=== PATIENT | female | born 1950 | race Caucasian/White ===

== ENCOUNTER → 2017-02-04 | Outpatient (REF) | payer MEDICARE ==
[~2017-02-04] MED LIST: CURCPOW; FLUT11IN INH; LISI-542 PO; PROA1AER IN; [UNRECOGNIZED DRUG - CODE] PO
[2017-02-04 12:46] LABS: ANION GAP 8 MEQ/L (8-16); BLOOD UREA NITROGEN 21 MG/DL (7-18); CALCIUM LEVEL 9.2 MG/DL (8.8-10.2); CARBON DIOXIDE LEVEL 28 MEQ/L (21-32); CHLORIDE LEVEL 106 MEQ/L (98-107); CHOLESTEROL LEVEL 191 MG/DL (<200); CREATININE FOR GFR 0.94 MG/DL (0.55-1.02); GLOMERULAR FILTRATION RATE > 60.0 (>45); GLUCOSE, FASTING 86 MG/DL (80-110); MAGNESIUM LEVEL 1.9 MG/DL (1.8-2.4); POTASSIUM SERUM 4.3 MEQ/L (3.5-5.1); SODIUM LEVEL 142 MEQ/L (136-145); TRIGLYCERIDES LEVEL 47 MG/DL (<150)
== END ==
LOC: M LABDRAWC 12:01
PROVIDERS: ATTEND Internal Medicine
DX: E78.5 Hyperlipidemia, unspecified (principal); I10 Essential (primary) hypertension; E83.42 Hypomagnesemia

== ENCOUNTER → 2017-07-01 | Outpatient (CLI) | payer MEDICARE ==
[~2017-07-01] MED LIST changes: -PROA1AER IN; +PROAAER10 IN
--- NOTE | 2017-07-01 12:10 | REP ---
CT of the chest without IV contrast: Comparison is made multiple prior studies. There is a 5 mm lung nodule posterior medially in the right upper lobe on image 16. This measured 5 mm of 01/18/2015 and 5 mm on 11/30/2015. There is a 3 mm lung nodule in the right middle lobe anteriorly on image 54. This is unchanged from 03/16/2014. There is a new right upper lobe lung nodule on image 17 measuring 6 mm, not present on the most recent prior study of 07/04/2016. There are no other lung nodules or masses. There is a small stable parenchymal scar in the medial segment right middle lobe, unchanged in 11/30/2015. There are numerous bulla throughout the lung weathers bilaterally, unchanged, compatible with bullous emphysema. There are no pleural effusions. There are no mediastinal enlarging lymph nodes. No axillary, enlarged lymph nodes. The absence of IV contrast the study is insensitive for hilar lymph node enlargement. There are bilateral breast implants, unchanged. The unenhanced thoracic aorta is unremarkable. Cardiac size is normal. The visualized upper abdominal contents are unremarkable and unchanged. Impression: Lung nodules as described. Bullous emphysema. Parenchymal scar in the medial segment right middle lobe. Signed by Billy Donovan MD 07/01/2017 12:01 P
== END ==
LOC: M RAD 10:54
PROVIDERS: ATTEND Internal Medicine Pulmonary Disease
DX: R91.8 Other nonspecific abnormal finding of lung field (principal)

== ENCOUNTER → 2018-05-12 | Outpatient (CLI) | payer MEDICARE | LOC: M RAD 09:18 | DX: R91.8 Other nonspecific abnormal finding of lung field (principal); J43.8 Other emphysema; Z90.13 Acquired absence of bilateral breasts and nipples | CPT/HCPCS: 71250 ==

== ENCOUNTER → 2018-05-21 | Outpatient (CLI) | payer MEDICARE | LOC: M WHC 10:01 | DX: Z13.820 Encounter for screening for osteoporosis (principal); M85.9 Disorder of bone density and structure, unspecified; M81.0 Age-related osteoporosis without current pathological fracture | CPT/HCPCS: 77080 ==

== ENCOUNTER → 2018-06-11 | Outpatient (REF) | payer MEDICARE ==
[2018-06-11 15:04] LABS: RHEUMATOID FACTOR QUANT 10.9 IU/ML (<15.0)
[2018-06-17 14:09] LABS: ANCA-ATYPICAL <1:20 titer (Neg:<1:20); ASPERGILLUS FLAVUS ABY Negative (Neg:<1:1); ASPERGILLUS FUMIGATUS ABY Negative (Neg:<1:1); ASPERGILLUS NIGER ABY Negative (Neg:<1:1); BLASTOMYCES ABY Negative (Neg:<1:1); CYCLIC CITRULLINATED PEPTIDE 6 units (0-19); CYTOPLASMIC NEUTROP AB ANCA-C <1:20 titer (Neg:<1:20); HISTOPLASMA ABY Negative (Neg:<1:1); PERINUCLEAR AB ANCA-P <1:20 titer (Neg:<1:20)
== END ==
LOC: M LAB REF 12:53
DX: J44.9 Chronic obstructive pulmonary disease, unspecified (principal)
CPT/HCPCS: 86606

== ENCOUNTER → 2018-08-07 | Outpatient (REF) | payer MEDICARE ==
[2018-08-07 12:25] LABS: APPEARANCE, URINE CLEAR (CLEAR); BACTERIA, URINE AUTO NEGATIVE (NEGATIVE); BILIRUBIN, URINE AUTO NEGATIVE (NEGATIVE); BLOOD, URINE BLOOD 1+ (NEGATIVE); COLOR, URINE YELLOW (YELLOW); GLUCOSE, URINE (UA) AUTO NEGATIVE (NEGATIVE); KETONE, URINE AUTO NEGATIVE (NEGATIVE); LEUKOCYTE ESTERASE, URINE AUTO NEGATIVE (NEGATIVE); MUCUS, URINE SMALL (NEGATIVE); NITRITE, URINE AUTO NEGATIVE (NEGATIVE); PROTEIN, URINE AUTO NEGATIVE (NEGATIVE); RBC, URINE AUTO 0 /HPF (0-3); SPECIFIC GRAVITY URINE AUTO 1.016 (1.002-1.035); SQUAMOUS EPITHELIAL CELL UR AU 0 /HPF (0-6); UROBILINOGEN, URINE AUTO 0.2 mg/dL (0.0-2.0); WBC, URINE AUTO 1 /HPF (0-3)
[2018-08-07 12:28] LABS: BASO # 0.1 10^3/uL (0.0-0.2); BASO % 0.9 % (0.0-1.0); EOS # 0.7 10^3/uL (0.0-0.50); HEMATOCRIT 42.5 % (36.0-47.0); HEMOGLOBIN 13.9 g/dl (12.0-15.5); IMMATURE GRANULOCYTE % 0.2 % (0-3.0); LYMPH # 2.7 10^3/uL (1.5-4.5); LYMPH % 49.5 % (24.0-44.0); MEAN CORPUSCULAR HEMOGLOBIN 30.8 pg (27.0-33.0); MEAN CORPUSCULAR HGB CONC 32.7 g/dl (32.0-36.5); MONO # 0.5 10^3/uL (0.0-0.8); MONO % 8.7 % (0.0-5.0); NEUTROPHILS # 1.6 10^3/uL (1.8-7.7); NEUTROPHILS % 28.7 % (36.0-66.0); PLATELET COUNT, AUTOMATED 339 10^3/uL (150-450); RED BLOOD COUNT 4.52 10^6/uL (4.00-5.40); RED CELL DISTRIBUTION WIDTH 12.8 % (11.5-14.5); WHITE BLOOD COUNT 5.5 10^3/uL (4.0-10.0)
[2018-08-07 13:25] LABS: ALT/SGPT 29 U/L (12-78); ANION GAP 11 MEQ/L (8-16); BLOOD UREA NITROGEN 24 MG/DL (7-18); CALCIUM LEVEL 9.6 MG/DL (8.8-10.2); CARBON DIOXIDE LEVEL 26 MEQ/L (21-32); CHLORIDE LEVEL 102 MEQ/L (98-107); CHOLESTEROL LEVEL 228 MG/DL (<200); CHOLESTEROL RISK RATIO 2.561 (<5); CREATININE FOR GFR 0.98 MG/DL (0.55-1.30); GLOMERULAR FILTRATION RATE > 60.0 (>45); GLUCOSE, FASTING 81 MG/DL (70-100); HDL CHOLESTEROL 89 MG/DL (>40); LDL CHOLESTEROL 124 MG/DL (<100); NON-HDL-C 139 MG/DL; POTASSIUM SERUM 4.3 MEQ/L (3.5-5.1); SODIUM LEVEL 139 MEQ/L (136-145); TOTAL 25(OH) VITAMIN D 35.2 NG/ML (30.0-100.0); TRIGLYCERIDES LEVEL 73 MG/DL (<150)
== END ==
LOC: M LABDRAWC 07:46
DX: R63.4 Abnormal weight loss (principal); M81.0 Age-related osteoporosis without current pathological fracture; E78.00 Pure hypercholesterolemia, unspecified; I10 Essential (primary) hypertension; J44.9 Chronic obstructive pulmonary disease, unspecified
CPT/HCPCS: 84460

== ENCOUNTER → 2018-08-11 | Outpatient (REF) | payer MEDICARE ==
[2018-08-11 16:58] LABS: TOTAL VOLUME, URINE 1850 ML
[2018-08-11 17:28] LABS: CALCIUM, URINE 16.7 MG/DL
== END ==
LOC: M LAB REF 16:10
DX: M81.0 Age-related osteoporosis without current pathological fracture (principal)
CPT/HCPCS: 82340

== ENCOUNTER → 2019-02-04 | Outpatient (CLI) | payer MEDICARE ==
[~2019-02-04] MED LIST changes: +[UNRECOGNIZED DRUG - CODE] PO; -[UNRECOGNIZED DRUG - CODE] PO
--- NOTE | 2019-02-04 16:08 | REP ---
CT chest without contrast: History: Solitary pulmonary nodule. There are multiple prior chest CTs, the most recent of which is from May 12, 2018. The most remote is from March 16, 2014. Study from a May 12, 2018 showed a waxing and waning pattern of pulmonary nodules. There was a new 8 mm pulmonary nodule in the right lower lobe. CT findings: Stable mild linear fibrosis in the left lower lobe. There are emphysematous changes noted bilaterally. The recently noted 8 mm right lower lobe pulmonary nodule has decreased in size measuring 4 mm today. There is a stable 2-3 mm nodule in the right lower lobe elsewhere. A stable whitney fissural nodule is seen in the minor fissure projecting in the right middle lobe on. This is unchanged from 2013. There is a tiny of 3-4 mm nodule in the posterior aspect of the right upper lobe which is unchanged from most recent prior study. There is new irregular branching density in the right upper lobe which does not appear to be a nodule but rather inspissated endobronchial mid material. This is a new density. No other new infiltrate or new pulmonary opacity is seen. Bilateral breast augmentation implants are again seen. No hilar or mediastinal mass or adenopathy is observed. There is some left coronary artery vascular calcification again noted. No adrenal lesion is seen. Impression: The most recently identified 8 mm pulmonary nodule in the right lower lobe has decreased in size. There are other stable tiny pulmonary nodules on the right. There is a new branching angular density in the right upper lobe suggesting inspissated endobronchial secretions or fibrosis. There is emphysematous change consistent with COPD. Electronically Signed by Nikita Alegria MD 02/04/2019 04:31 P
== END ==
LOC: M RAD 13:47
PROVIDERS: ATTEND Internal Medicine Pulmonary Disease
DX: R91.1 Solitary pulmonary nodule (principal)

== ENCOUNTER → 2019-06-17 | Outpatient (CLI) | payer MEDICARE ==
--- NOTE | 2019-06-23 15:17 | DEXA ---
AP SPINE L1 - L4 1.059 -1.1 0.5 LT FEMUR TOTAL 0.647 -2.9 -1.5 LT NECK 0.596 -3.2 -1.5 RT FEMUR TOTAL 0.615 -3.1 -1.7 RT NECK 0.542 -3.6 -1.9 TOTAL BODY TOTAL OTHER COMMENTS: There is low bone density of the spine. There is osteoporosis of the hips. The density of the spine has increased 11.5% since the initial exam on 11/29/2010. The spine density has increased 13.9% since the most recent exam on 05/21/2018 The density of the left hip has decreased 11.2% since the initial exam on 11/29/2010. The density of the left hip has decreased 1.1% since the most recent exam on 05/21/2018 The density of the right hip has decreased 5.7% since the initial exam on 08/22/2015. The density of the right hip has decreased 1.6% since the most recent exam on 05/21/2018. FOLLOW-UP: Recommendation for the next bone density exam: 2 years. CHATO
== END ==
LOC: M WHC 13:09
PROVIDERS: ATTEND Internal Medicine Endocrinology, Diabetes & Metabolism
DX: M81.0 Age-related osteoporosis without current pathological fracture (principal); M85.88 Other specified disorders of bone density and structure, other site; M85.851 Other specified disorders of bone density and structure, right thigh; M85.852 Other specified disorders of bone density and structure, left thigh

== ENCOUNTER → 2019-06-26 | Outpatient (REF) | payer MEDICARE ==
[2019-06-26 19:51] LABS: AMORPHOUS SEDIMENT SMALL (NEGATIVE); APPEARANCE, URINE CLEAR (CLEAR); BACTERIA, URINE AUTO NEGATIVE (NEGATIVE); BILIRUBIN, URINE AUTO NEGATIVE (NEGATIVE); BLOOD, URINE BLOOD NEGATIVE (NEGATIVE); COLOR, URINE YELLOW (YELLOW); GLUCOSE, URINE (UA) AUTO NEGATIVE (NEGATIVE); KETONE, URINE AUTO NEGATIVE (NEGATIVE); LEUKOCYTE ESTERASE, URINE AUTO NEGATIVE (NEGATIVE); NITRITE, URINE AUTO NEGATIVE (NEGATIVE); PROTEIN, URINE AUTO NEGATIVE (NEGATIVE); RBC, URINE AUTO 2 /HPF (0-3); SPECIFIC GRAVITY URINE AUTO 1.011 (1.002-1.035); SQUAMOUS EPITHELIAL CELL UR AU 0 /HPF (0-6); UROBILINOGEN, URINE AUTO 0.2 mg/dL (0.0-2.0); WBC, URINE AUTO 0 /HPF (0-3)
== END ==
LOC: M SFHCADAM 19:21
PROVIDERS: ATTEND Physician Assistant
DX: R35.0 Frequency of micturition (principal)

== ENCOUNTER → 2019-08-04 | Outpatient (REF) | payer MEDICARE ==
[2019-08-04 11:44] LABS: HEMATOCRIT 39.4 % (36.0-47.0); HEMOGLOBIN 13.1 g/dl (12.0-15.5); MEAN CORPUSCULAR HEMOGLOBIN 31.8 pg (27.0-33.0); MEAN CORPUSCULAR HGB CONC 33.2 g/dl (32.0-36.5); MEAN CORPUSCULAR VOLUME 95.6 fl (80.0-96.0); PLATELET COUNT, AUTOMATED 307 10^3/uL (150-450); RED BLOOD COUNT 4.12 10^6/uL (4.00-5.40)
[2019-08-04 12:08] LABS: ALT/SGPT 27 U/L (12-78); BILIRUBIN,TOTAL 0.7 MG/DL (0.2-1.0); BLOOD UREA NITROGEN 26 MG/DL (7-18); CALCIUM LEVEL 9.8 MG/DL (8.8-10.2); CARBON DIOXIDE LEVEL 30 MEQ/L (21-32); CHLORIDE LEVEL 105 MEQ/L (98-107); CHOLESTEROL LEVEL 195 MG/DL (<200); CREATININE FOR GFR 0.94 MG/DL (0.55-1.30); FREE T4 1.05 NG/DL (0.76-1.46); GLOMERULAR FILTRATION RATE > 60.0 (>45); GLUCOSE, FASTING 88 MG/DL (70-100); HDL CHOLESTEROL 101 MG/DL (>40); LDL CHOLESTEROL 85 MG/DL (<100); NON-HDL-C 94 MG/DL; POTASSIUM SERUM 4.4 MEQ/L (3.5-5.1); SODIUM LEVEL 141 MEQ/L (136-145); TOTAL PROTEIN 6.8 GM/DL (6.4-8.2); TRIGLYCERIDES LEVEL 45 MG/DL (<150)
[2019-08-04 12:11] LABS: TOTAL 25(OH) VITAMIN D 33.4 NG/ML (30.0-100.0)
== END ==
LOC: M SFHCCLAY 08:42
PROVIDERS: ATTEND Physician Assistant
DX: Z86.79 Personal history of other diseases of the circulatory system (principal); R35.0 Frequency of micturition; J44.9 Chronic obstructive pulmonary disease, unspecified; M81.0 Age-related osteoporosis without current pathological fracture; E78.00 Pure hypercholesterolemia, unspecified; E07.9 Disorder of thyroid, unspecified

== ENCOUNTER → 2020-04-07 | Outpatient (CLI) | payer MEDICARE ==
--- NOTE | 2020-04-07 23:33 | REP ---
REASON FOR EXAM: Followup. All priors reviewed, the latest 02/04/2019. The mediastinum and pulmonary [place] are unchanged. No mass or adenopathy has developed. There are no pleural or pericardial effusions. There is no change in the imaged upper abdomen or imaged osseous structures. Evaluation of the lung weathers shows no change in the right upper lobe density and right lower lobe nodule. There is a small angular density seen in the left lower lobe, representing a change from the prior exams and having a similar appearance to the density seen in the right upper lobe. The lung weathers are otherwise stable. There are emphysematous changes, status quo. IMPRESSION: 1. Stable right lung densities, as described above. 2. New left lower lobe density, as described above. This likely represents benign disease and a continuum of chronic changes. I would recommend followup in a 6-month interval. Electronically Signed by Julio Whitney DO 04/08/2020 10:35 A
== END ==
LOC: M RAD 15:50
PROVIDERS: ATTEND Internal Medicine Pulmonary Disease
DX: R91.8 Other nonspecific abnormal finding of lung field (principal)

== ENCOUNTER → 2020-06-14 | Outpatient (REF) | payer MEDICARE ==
[2020-06-14 17:04] LABS: BLOOD UREA NITROGEN 25 MG/DL (7-18); CALCIUM LEVEL 9.8 MG/DL (8.8-10.2); CARBON DIOXIDE LEVEL 28 MEQ/L (21-32); CHLORIDE LEVEL 104 MEQ/L (98-107); CREATININE FOR GFR 0.93 MG/DL (0.55-1.30); GLOMERULAR FILTRATION RATE > 60.0 (>45); GLUCOSE, FASTING 88 MG/DL (70-100); SODIUM LEVEL 139 MEQ/L (136-145)
== END ==
LOC: M LABDRAWC 12:50
PROVIDERS: ATTEND Nurse Practitioner Family
DX: E55.9 Vitamin D deficiency, unspecified (principal); M81.0 Age-related osteoporosis without current pathological fracture

== ENCOUNTER → 2020-06-17 | Outpatient (CLI) | payer MEDICARE ==
--- NOTE | 2020-07-06 15:50 | DEXA ---
AP SPINE L1 - L4 1.043 -1.2 0.4 LT FEMUR TOTAL 0.675 -2.6 -1.2 LT NECK 0.631 -2.6 -1.3 RT FEMUR TOTAL 0.630 -3.0 -1.5 RT NECK 0.527 -3.7 -2.0 TOTAL BODY TOTAL OTHER COMMENTS: There is low bone density of the spine. There is osteoporosis of the hips. The decreased density of the spine does not represent a significant change. The increased density of the left hip does represent a significant change. The increased density of the right hip does represent a significant change. The density of the spine is increased 9.8% since the initial exam on 11/29/2010. The decreased 1.5% since the most recent exam on 06/17/2019. The density of the left hip has decreased 7.4% since the initial exam on 11/29/2010. The density of the left hip has increased 4.3% since the most recent exam on 06/17/2019. The density of the right hip has decreased 3.4% since the initial exam on 11/29/2010. The density of the right hip has increased 2.4% since the most recent exam on 06/17/2019. FOLLOW-UP: Recommendation for the next bone density exam: 2 years. CHATO
== END ==
LOC: M WHC 13:06
PROVIDERS: ATTEND Internal Medicine Endocrinology, Diabetes & Metabolism
DX: M81.0 Age-related osteoporosis without current pathological fracture (principal)

== ENCOUNTER 2020-07-18 13:23 | Outpatient (CLI) | payer MEDICARE ==
[~2020-07-18] VITALS: Ht 160 cm; Wt 51.8 kg
[2020-07-18] MEDS: ZOLEDRONIC ACID 5 MG in IV 1 EA IV ONE (13:43)
[2020-07-18 13:56] VITALS: BP 144/67
[2020-07-18 14:46] VITALS: BP 122/76
== END 2020-07-18 14:45 | disposition home or self-care (01) ==
LOC: M INFU 13:23
PROVIDERS: ATTEND Internal Medicine Endocrinology, Diabetes & Metabolism
DX: M81.0 Age-related osteoporosis without current pathological fracture (principal)
CPT/HCPCS: 96365; J3489

== ENCOUNTER → 2021-05-22 | Outpatient (CLI) | payer MEDICARE ==
[~2021-05-22] MED LIST changes: +ATOR1TAB19 PO; +BREO1INH3 PO; +CALCCHW4 PO; +CLEAR LUNGS PO; +CVS1CAP2 PO; -LISI-542 PO; +LISI5TAB11 PO; +MOVE1TAB PO; +NACCAP PO; +SPIR1CAP INH; +VITATAB74 PO
== END ==
LOC: M PLAIMG 12:52
PROVIDERS: ATTEND Internal Medicine Pulmonary Disease
DX: R91.8 Other nonspecific abnormal finding of lung field (principal)

== ENCOUNTER → 2021-07-10 | Outpatient (REF) | payer MEDICARE, BC ==
[~2021-07-10] MED LIST changes: -ATOR1TAB19 PO; -BREO1INH3 PO; -CALCCHW4 PO; -CLEAR LUNGS PO; -CVS1CAP2 PO; +LISI-898 PO; -LISI5TAB11 PO; -MOVE1TAB PO; -NACCAP PO; -SPIR1CAP INH; -VITATAB74 PO
[2021-07-10 12:28] LABS: BLOOD UREA NITROGEN 22 MG/DL (7-18); CALCIUM LEVEL 9.5 MG/DL (8.8-10.2); CARBON DIOXIDE LEVEL 29 MEQ/L (21-32); CHLORIDE LEVEL 107 MEQ/L (98-107); GLOMERULAR FILTRATION RATE > 60.0 (>39); GLUCOSE, FASTING 89 MG/DL (70-100); POTASSIUM SERUM 4.5 MEQ/L (3.5-5.1); SODIUM LEVEL 141 MEQ/L (136-145); TOTAL 25(OH) VITAMIN D 67.3 NG/ML (30.0-100.0)
== END ==
LOC: M LABDRAWC 10:51
PROVIDERS: ATTEND Internal Medicine Endocrinology, Diabetes & Metabolism
DX: M81.0 Age-related osteoporosis without current pathological fracture (principal); E55.9 Vitamin D deficiency, unspecified

== ENCOUNTER → 2021-07-17 | Outpatient (CLI) | payer MEDICARE ==
--- NOTE | 2021-07-17 12:33 | DEXAMM ---
INDICATION: AGE RELATED OSTEOPOROSIS WO CURRENT FX ON RECLAST INFUSION. COMPARISON: June 17, 2020. TECHNIQUE: Bone density was measured using dual-energy x-ray absorptionmetry (DEXA). FINDINGS: AP SPINE L1-L4 BMD 1.090 g/cm2 Young Adult T-Score -0.8 Age Matched Z-Score 0.8. LT FEMUR, TOTAL BMD 0.675 g/cm2 Young Adult T-Score -2.6 Age Matched Z-Score 6-1.1. LT NECK BMD 0.633 g/cm2 Young Adult T-Score -2.9 Age Matched Z-Score -1.2. RT FEMUR, TOTAL BMD 0.642 g/cm2 Young Adult T-Score -2.9 Age Matched Z-Score -1.4. RT NECK BMD 0.541 g/cm2 Young Adult T-Score -3.6 Age Matched Z-Score -1.9. IMPRESSION: There is normal bone density of the spine. There is osteoporosis of the left hip. There is osteoporosis of the right hip. The density of the spine has increased 14.7% since the initial exam on November 29, 2010. The density of the spine increased 4.5% since most recent exam on June 17, 2020. The density of the left hip has decreased 7.4% since initial exam on June 29, 2011. The density of the left hip has not changed since most recent exam on June 17, 2020. The density of the right hip has decreased 1.5% since the initial exam on August 22, 2015. The density of the right hip has increased 1.9% since the most recent exam on June 17, 2020. FOLLOW-UP: Recommendation for the next bone density exam: 2 years. <Electronically signed by Amandeep Alegria > 07/17/21 [id number]
== END ==
LOC: M WHC 11:44
PROVIDERS: ATTEND Internal Medicine Endocrinology, Diabetes & Metabolism
DX: M81.0 Age-related osteoporosis without current pathological fracture (principal); Z79.899 Other long term (current) drug therapy

== ENCOUNTER 2021-07-25 12:07 | Outpatient (CLI) | payer MEDICARE ==
[~2021-07-25] VITALS: Ht 157.5 cm; Wt 51.8 kg
[~2021-07-25 12:07] MED LIST changes: +ZOLEDRONIC ACID 5 MG in IV 1 EA IV ONE
[2021-07-25 12:10] VITALS: BP 161/81
[2021-07-25] MEDS ORDERED: BREO1INH3 PO (12:44)
[2021-07-25] MEDS ORDERED: ATOR1TAB19 PO (12:49)
[2021-07-25] MEDS ORDERED: NACCAP PO (12:49)
[2021-07-25] MEDS ORDERED: CVS1CAP2 PO (12:49)
[2021-07-25] MEDS ORDERED: MOVE1TAB PO (12:49)
[2021-07-25] MEDS ORDERED: SPIR1CAP INH (12:49)
[2021-07-25] MEDS ORDERED: CLEAR LUNGS PO (12:49)
[2021-07-25] MEDS ORDERED: VITATAB74 PO (12:50)
[2021-07-25] MEDS ORDERED: CALCCHW4 PO (12:50)
[2021-07-25 13:15] VITALS: BP 148/81
== END 2021-07-25 13:15 | disposition home or self-care (01) ==
LOC: M INFU 12:07
PROVIDERS: ATTEND Internal Medicine Endocrinology, Diabetes & Metabolism
DX: M81.0 Age-related osteoporosis without current pathological fracture (principal); Z88.2 Allergy status to sulfonamides
CPT/HCPCS: 96365; J3489

== ENCOUNTER → 2022-03-02 | Outpatient (CLI) | payer MEDICARE ==
[~2022-03-02] MED LIST changes: +ATOR1TAB19 PO; +BREO1INH3 PO; +CALCCHW4 PO; +CLEAR LUNGS PO; +CVS1CAP2 PO; -LISI-898 PO; +LISI5TAB11 PO; +MOVE1TAB PO; +NACCAP PO; +SPIR1CAP INH; +VITATAB74 PO; -ZOLEDRONIC ACID 5 MG in IV 1 EA IV ONE
== END ==
LOC: M RAD 11:34
PROVIDERS: ATTEND Internal Medicine Pulmonary Disease
DX: R91.8 Other nonspecific abnormal finding of lung field (principal); J43.9 Emphysema, unspecified; R93.7 Abnormal findings on diagnostic imaging of other parts of musculoskeletal system

== ENCOUNTER → 2023-05-21 | Outpatient (CLI) | payer OTHER ==
[~2023-05-21] MED LIST changes: +[UNRECOGNIZED DRUG - CODE] PO; -[UNRECOGNIZED DRUG - CODE] PO
== END ==
LOC: M PLALAB 12:30
PROVIDERS: ATTEND Internal Medicine Endocrinology, Diabetes & Metabolism
DX: M81.0 Age-related osteoporosis without current pathological fracture (principal)

== ENCOUNTER → 2024-03-20 | Outpatient (CLI) | payer OTHER | LOC: M RAD 14:41 | PROVIDERS: ATTEND Internal Medicine Critical Care Medicine | DX: J44.9 Chronic obstructive pulmonary disease, unspecified (principal) ==

== ENCOUNTER → 2024-03-24 | Outpatient (CLI) | payer OTHER | LOC: M CARPUL 10:47 | PROVIDERS: ATTEND Internal Medicine Critical Care Medicine | DX: J44.9 Chronic obstructive pulmonary disease, unspecified (principal) ==

== ENCOUNTER → 2024-05-22 | Outpatient (REF) | payer OTHER ==
[2024-05-22 18:02] LABS: BASO # 0.1 10^3/uL (0.0-0.2); BASO % 0.7 % (0.0-1.0); EOS # 0.2 10^3/uL (0.0-0.5); EOS % 3.1 % (0.0-3.0); HEMATOCRIT 43.2 % (36.0-47.0); HEMOGLOBIN 14.1 g/dl (12.0-15.5); LYMPH % 27.3 % (24.0-44.0); MEAN CORPUSCULAR HEMOGLOBIN 31.3 pg (27.0-33.0); MEAN CORPUSCULAR HGB CONC 32.6 g/dl (32.0-36.5); MONO # 0.6 10^3/uL (0.0-0.8); MONO % 7.4 % (2.0-8.0); NEUTROPHILS # 4.6 10^3/uL (1.5-8.5); NEUTROPHILS % 61.2 % (36.0-66.0); PLATELET COUNT, AUTOMATED 287 10^3/uL (150-450); WHITE BLOOD COUNT 7.5 10^3/uL (4.0-10.0)
== END ==
LOC: M LABDRAWC 16:30
PROVIDERS: ATTEND Internal Medicine Critical Care Medicine
DX: J44.9 Chronic obstructive pulmonary disease, unspecified (principal)

== ENCOUNTER → 2025-03-01 | Outpatient (CLI) | payer OTHER | LOC: M PLAIMG 14:52 | PROVIDERS: ATTEND Internal Medicine Critical Care Medicine | DX: J47.9 Bronchiectasis, uncomplicated (principal); R91.8 Other nonspecific abnormal finding of lung field; J98.4 Other disorders of lung ==